=== PATIENT | female | born 1975 | race Caucasian/White ===

== ENCOUNTER → 2019-03-25 | Outpatient (CLI) | payer OTHER | LOC: RAD 11:07 | DX: Z12.31 Encounter for screening mammogram for malignant neoplasm of breast (principal) ==

== ENCOUNTER → 2019-04-15 | Outpatient (CLI) | payer OTHER | LOC: ULTRA 01:26 | DX: N63.10 Unspecified lump in the right breast, unspecified quadrant (principal) ==